=== PATIENT | male | born 1990 | race Two or more races ===

== ENCOUNTER 2018-09-29 00:05 | Emergency (ER) | payer MEDICAID ==
[~2018-09-29] VITALS: Ht 177.8 cm; Wt 99.8 kg
[2018-09-29 01:16] LABS: Basophils # (auto) 0.1 uL; Basophils % (auto) 1.2 % (0.0-2.0); Hematocrit 47.4 % (41.0-53.0); Hemoglobin 16.7 g/dL (13.5-17.5); Lymphocytes # (auto) 1.3 uL; Lymphocytes % (auto) 11.3 % (10.0-50.0); Mean Corpuscular Hemoglobin 30.5 pg (28.0-32.0); Mean Corpuscular Hgb Conc. 35.2 g/dL (32.0-36.0); Mean Corpuscular Volume 86.8 fL (80.0-100.0); Monocytes # (auto) 0.4 uL; Monocytes % (auto) 3.7 % (0.0-12.0); Neutrophils % (auto) 75.8 % (37.0-80.0); Nucleated Red Blood Cells % 0.1 %; Platelet Count (auto) 352 10^3/uL (140-450); Red Blood Cells 5.46 10^6/uL (4.5-5.90); Red Cell Distribution Width 12.9 % (11.8-14.3); White Blood Cell 11.9 10^3/uL (4.4-10.8)
[2018-09-29 01:26] LABS: Chloride 110 mmol/L (98-107); Potassium 3.6 mmol/L (3.5-5.1); Sodium 141 mmol/L (136-145)
[2018-09-29 01:29] LABS: Albumin 3.9 g/dL (3.4-5.0); Anion Gap 10 (5-15); Blood Urea Nitrogen 16 mg/dL (7-18); Calcium 8.8 mg/dL (8.5-10.1); Carbon Dioxide 21 mmol/L (21-32); Glucose 134 mg/dL (74-106); Magnesium 2.5 mg/dL (1.6-2.6)
[2018-09-29 01:32] LABS: Aspartate Aminotransferase 27 U/L (15-37); GFR African American 83 mL/min; GFR Non-African American 69 mL/min
[2018-09-29 01:35] LABS: Alkaline Phosphatase 82 U/L (45-117); Bilirubin, Total < 0.1 mg/dL (0.2-1.0); Total Protein 7.5 g/dL (6.4-8.2)
[2018-09-29 01:40] LABS: Alanine Aminotransferase 66 U/L (16-61)
[2018-09-29] MEDS ORDERED: ALBUTEROL SULF 2.5 MG/0.5ML(0.5%) NEB SOLN NEB ONE ×2 (01:45→03:45)
[2018-09-29] MEDS ORDERED: IPRATROPIUM BROM 0.5 MG/2.5ML INH SOL NEB ONE ×2 (01:45→03:45)
[2018-09-29] MEDS ORDERED: methylPREDNISolone SOD SUCC 125 MG/2 ML VL IV ONE (03:45)
[2018-09-29 05:01] VITALS: BP 144/82
== END 2018-09-29 05:24 | disposition home or self-care (01) ==
LOC: EDBD 00:05 → ER 00:09
DX: R06.02 Shortness of breath (principal); K59.00 Constipation, unspecified
CPT/HCPCS: 36415; 71045; 74176; 80053; 83735; 85025; 93005; 94640; 96374; 99284; J2930; J7611; J7644; 94644